=== PATIENT | male | born 1980 | race Caucasian/White ===

== ENCOUNTER 2016-10-18 01:15 | Emergency (ER) | payer OTHER ==
[~2016-10-18] VITALS: Ht 167.6 cm; Wt 95.5 kg
[2016-10-18 01:19] VITALS: Ht 167.6 cm; Wt 95.5 kg
--- NOTE | 2016-10-18 01:42 | ERA ---
ER Documentation Chief Complaint Date/Time DATE: 10/18/16 TIME: 01:42 Chief Complaint ETOH intoxication, in custody HPI The patient is a 36-year-old male, presenting to the ER for medical clearance. He is under [employer] custody. He is awake, alert, able to answer question appropriately. He has been drinking, denies any illicit drug. He denies headache, syncope, near syncope, neck pain, chest pain, abdominal pain, vomiting , dysuria, diarrhea. Past medical history: Diabetes mellitus Past surgical history: None ROS All systems reviewed and are negative except as per history of present illness. Allergies Allergies: Coded Allergies: No Known Allergy (Unverified , 10/18/16) Physical Exam Vitals Vital Signs Date Time Temp Pulse Resp B/P Pulse Ox O2 Delivery O2 Flow Rate FiO2 10/18/16 03:26 98.3 111 20 112/63 98 Room Air 10/18/16 01:19 99.3 123 18 134/81 94 Physical Exam Const: No acute distress. Head: Atraumatic. Eyes: Normal Conjunctiva. ENT: Normal External Ears, Nose and Mouth. Neck: Full range of motion. No meningismus. Resp: Clear to auscultation bilaterally. Cardio: Regular rate and rhythm, no murmurs. Abd: Soft, non distended, normal bowel sounds, non tender. Skin: No petechiae or rashes. Back: No midline or flank tenderness. Ext: No cyanosis, or edema. Neur: Awake and alert. No focal deficit Psych: Normal Mood and Affect. Result Diagram: 10/18/16 0206 10/18/16 0206 Results 24 hrs Laboratory Tests Test 10/18/16 01:54 10/18/16 02:06 10/18/16 02:14 10/18/16 03:14 Bedside Glucose 360mg/dL 269mg/dL White Blood Count 7.010^3/ul Red Blood Count 4.7110^6/ul Hemoglobin 14.4g/dl Hematocrit 42.5% Mean Corpuscular Volume 90.2fl Mean Corpuscular Hemoglobin 30.6pg Mean Corpuscular Hemoglobin Concent 33.9g/dl Red Cell Distribution Width 11.5% Platelet Count 62450^3/UL Mean Platelet Volume 11.7fl Neutrophils % 75.8% Lymphocytes % 17.4% Monocytes % 5.8% Eosinophils % 0.3% Basophils % 0.3% Nucleated Red Blood Cells % 0.0/100WBC Neutrophils # 5.310^3/ul Lymphocytes # 1.210^3/ul Monocytes # 0.410^3/ul Eosinophils # 0.010^3/ul Basophils # 0.010^3/ul Nucleated Red Blood Cells # 0.010^3/ul Sodium Level 142mmol/L Potassium Level 4.4mmol/L Chloride Level 107mmol/L Carbon Dioxide Level 21mmol/L Anion Gap 18 Blood Urea Nitrogen 14mg/dl Creatinine 0.71mg/dl Glucose Level 397mg/dl Calcium Level 9.3mg/dl Urine Opiates Screen NEGATIVE Urine Barbiturates NEGATIVE Urine Amphetamines Screen NEGATIVE Urine Benzodiazepines Screen NEGATIVE Urine Cocaine Screen NEGATIVE Urine Cannabinoids NEGATIVE Ethyl Alcohol Level 205.0mg/dl Bedside Urine pH (LAB) 5.5 Bedside Urine Protein (LAB) Negative Bedside Urine Glucose (UA) 0.50% Bedside Urine Ketones (LAB) Trace Bedside Urine Blood Negative Bedside Urine Nitrite (LAB) Negative Bedside Urine Leukocyte Esterase (L Negative Test 10/18/16 04:08 Bedside Glucose 235mg/dL Current Medications Medications (Trade) Dose Ordered Sig/Rex Route PRN Reason Start Time Stop Time Status Last Admin Dose Admin Sodium Chloride (NS) 1,000 ml @ 1,000 mls/hr Q1H ONCE IV 10/18/16 02:00 10/18/16 02:59 DC 10/18/16 02:13 Insulin Human Lispro (Humalog) 8 unit ONCE STAT SC 10/18/16 02:08 10/18/16 02:10 DC 10/18/16 02:30 Procedures/MDM MEDICAL MAKING DECISION: The patient is a 36-year-old male, presenting with acute diabetic hyperglycemia. He was treated with 1 L normal saline and Humalog 8 units subcutaneously for acute diabetic hyperglycemia with good response. Accu-Chek prior to discharge was 235 The differential diagnoses considered include but are not limited to HHS, DKA, pneumonia, cystitis, substance abuse, psychiatric illness Departure Diagnosis: Primary Impression: Diabetes mellitus with hyperglycemia Additional Impression: Alcoholic intoxication Condition: Good Comments I discussed the findings with the patient. I advised the patient to follow-up with the senior care physician tomorrow and return if any concern The patient's blood pressure was elevated (>120/80) but appears stable without evidence of hypertension emergency or urgency. The patient was counseled about the risks of hypertension and urged to pursue outpatient monitoring and therapy within a week with their primary care physician. MARY GOMEZ MD October 18, 2016 01:42
[2016-10-18] MEDS ORDERED: SOD CHLORIDE 0.9% 1,000 ML IV ONE (02:00)
[2016-10-18] MEDS ORDERED: INSULIN LISPRO 100 UNIT/ML VIAL SC STA (02:08)
[2016-10-18 02:12] LABS: URINE BLOOD (Dip) POC Negative (NEGATIVE)
[2016-10-18 02:35] LABS: ADD SCAN DIFF NO
[2016-10-18 02:36] LABS: BASOPHILS % 0.3 % (0.0-2.0); EOSINOPHILS % 0.3 % (0.0-7.0); HEMATOCRIT 42.5 % (42.0-52.0); HEMOGLOBIN 14.4 g/dl (14.0-18.0); LYMPHOCYTES # 1.2 10^3/ul (0.8-2.9); LYMPHOCYTES % 17.4 % (15.0-51.0); MEAN CORPUSCULAR HEMOGLOBIN 30.6 pg (29.0-33.0); MEAN CORPUSCULAR HGB CONC 33.9 g/dl (32.0-37.0); MEAN CORPUSCULAR VOLUME 90.2 fl (82.0-101.0); MEAN PLATELET VOLUME 11.7 fl (7.4-10.4); MONOCYTE # 0.4 10^3/ul (0.3-0.9); MONOCYTES % 5.8 % (0.0-11.0); NEUTROPHIL # 5.3 10^3/ul (1.6-7.5); NEUTROPHILS % 75.8 % (39.0-77.0); PLATELET COUNT 267 10^3/UL (140-415); RED BLOOD COUNT 4.71 10^6/ul (4.70-6.10); RED CELL DISTRIBUTION WIDTH 11.5 % (11.5-14.5)
[2016-10-18 03:06] LABS: POTASSIUM 4.4 mmol/L (3.5-5.1)
[2016-10-18 03:09] LABS: CREATININE 0.71 mg/dl (0.61-1.24)
[2016-10-18 03:10] LABS: CALCIUM 9.3 mg/dl (8.4-10.2)
[2016-10-18 03:26] VITALS: BP 112/63; PULSE 111; RESP 20; TEMP 98.3
[2016-10-18 03:35] LABS: BARBITURATES NEGATIVE (NEGATIVE); BENZODIAZEPINES NEGATIVE (NEGATIVE); CANNABINOIDS NEGATIVE (NEGATIVE); COCAINE NEGATIVE (NEGATIVE); OPIATES NEGATIVE (NEGATIVE)
== END 2016-10-18 04:15 ==
LOC: E/R 01:15
DX: E11.65 Type 2 diabetes mellitus with hyperglycemia (principal)
CPT/HCPCS: 36415; 80048; 80306; 80307; 81003; 82962; 85025; 96372; 99284; J1815; J7030